=== PATIENT | male | born 1940 | race Caucasian/White ===

== ENCOUNTER 2016-11-15 12:03 | Inpatient (IN) | payer OTHER ==
[~2016-11-15] VITALS: Ht 175.3 cm; Wt 115.1 kg
[~2016-11-15 12:03] MED LIST: KEFLEX500 MG PO; LEVOTHYROXINE75 MCG PO; LOVASTATIN20 MG PO
[2016-11-15 12:47] LABS: BASOPHIL COUNT 0.1 K/uL (0-0.1); EOSINOPHIL (%) 2.7 % (0-5); EOSINOPHIL COUNT 0.2 K/uL (0-0.3); HEMATOCRIT 34.7 % (38.0-50.0); IMMATURE GRANULOCYTE (%) 0.3 % (0.0-0.7); INSTRUMENT ABS NEUTROPHIL CT 4.3 K/uL; LYMPHOCYTE COUNT 1.4 K/uL (1.0-2.8); MCH 34.3 PG (29.0-34.0); MCV 95.3 FL (86-99); MEAN PLAT.VOLUME 10.5 uM^3 (9.0-12.4); MONOCYTE (%) 15.4 % (3-12); MONOCYTE COUNT 1.1 K/uL (0-0.8); NEUTROPHIL (%) 61.5 % (45-76); NEUTROPHIL COUNT 4.3 K/uL (1.8-6.4); PLATELET COUNT 121 K/uL (156-360); RBC DIS.WIDTH-CV 15.8 % (11.8-14.6); RBC DIS.WIDTH-SD 55.5 % (39-53); RED BLOOD COUNT 3.64 M/uL (4.00-5.50); WHITE BLOOD COUNT 7.1 K/uL (4.1-10.2)
[2016-11-15 13:11] LABS: CHLORIDE 108 mEq/L (99-109); POTASSIUM 3.4 mEq/L (3.7-5.4); SODIUM 135 mEq/L (136-147)
[2016-11-15 13:13] LABS: GLUCOSE 122 mg/dL (70-99)
[2016-11-15 13:14] LABS: ANION GAP 9 MEQ/L (2-14)
[2016-11-15 13:17] LABS: GFR ESTIMATE (CALCULATED) > 59 mL/min/
[2016-11-15 13:18] LABS: UREA NITROGEN (BUN) 17 mg/dL (9-23)
[2016-11-15] MEDS ORDERED: SPIRONOLACTONE50 MG PO (14:42)
[2016-11-15] MEDS ORDERED: LASIX20 MG PO (14:43)
[2016-11-15] MEDS ORDERED: PANTOPRAZOLE SO40 MG PO (14:44)
[2016-11-15] MEDS ORDERED: PROAIR HFA8.5 GM IH (14:44)
[2016-11-15 15:08] LABS: ADD MIUA? YES; BILIRUBIN NEGATIVE; BLOOD LARGE; COLOR YELLOW ((YELLOW)); GLUCOSE (STRIP) NEGATIVE; KETONES NEGATIVE; LEUKOCYTES NEGATIVE; NITRITE NEGATIVE; PROTEIN (STRIP) NEGATIVE; SPECIFIC GRAVITY 1.012 (1.000-1.030); UROBILINOGEN 0.2 MG/DL (0.2-1.0)
[2016-11-15 15:44] LABS: TROP-I INTERPRETATION NEGATIVE; TROPONIN-I 0.01 ng/mL (0.0-0.30)
[2016-11-15 15:46] LABS: BACTERIA 1+ /HPF; EPITHELIAL CELLS NONE SEEN /HPF; MUCUS NONE SEEN /LPF; WHITE BLOOD CELLS 0-5 /HPF (0-5)
[2016-11-15 21:21] LABS: TROP-I INTERPRETATION NEGATIVE; TROPONIN-I 0.01 ng/mL (0.0-0.30)
[2016-11-15 22:58] VITALS: BP 118/63
[2016-11-16 06:16] LABS: ANION GAP 5 MEQ/L (2-14); CHLORIDE 106 MEQ/L (99-109); GFR ESTIMATE (CALCULATED) 53 mL/min/; GLUCOSE 152 mg/dL (70-99); POTASSIUM 3.9 MEQ/L (3.7-5.4); SAMPLE HEMOLYSIS CHECK 0; SAMPLE ICTERIC CHECK 0; SAMPLE LIPEMIA CHECK 0; SODIUM 130 MEQ/L (136-147); UREA NITROGEN (BUN) 21 mg/dL (9-23)
[2016-11-16 06:18] LABS: TROP-I INTERPRETATION NEGATIVE; TROPONIN-I 0.01 ng/mL (0.0-0.30)
[2016-11-16 07:09] VITALS: BP 127/75
[2016-11-16 10:06] LABS: ALKALINE PHOSPHATASE 94 IU/L (3-129); DIRECT BILIRUBIN 0.7 mg/dL (0.0-0.3); TOTAL BILIRUBIN 2.4 MG/DL (0.0-1.0)
[2016-11-16 10:45] LABS: D-DIMER ELISA > 4.00 mg/L FEU (< 0.57)
[2016-11-16 23:58] VITALS: BP 115/65
[2016-11-17 07:07] VITALS: BP 102/57
[2016-11-17 08:00] LABS: EOSINOPHIL (%) 0 % (0-5); HEMATOCRIT 29.7 % (38.0-50.0); IMMATURE GRANULOCYTE (%) 2.2 % (0.0-0.7); IMMATURE GRANULOCYTE COUNT 0.4 K/uL; INSTRUMENT ABS NEUTROPHIL CT 16.7 K/uL; LYMPHOCYTE COUNT 0.8 K/uL (1.0-2.8); MCH 34.7 PG (29.0-34.0); MCHC 36.4 G/DL (30.0-36.0); MCV 95.5 FL (86-99); MEAN PLAT.VOLUME 11.9 uM^3 (9.0-12.4); MONOCYTE (%) 4.6 % (3-12); MONOCYTE COUNT 0.9 K/uL (0-0.8); NEUTROPHIL (%) 88.7 % (45-76); NEUTROPHIL COUNT 16.7 K/uL (1.8-6.4); NRBC (%) 0.1 /100 WBC (0-0); PLATELET COUNT 114 K/uL (156-360); RED BLOOD COUNT 3.11 M/uL (4.00-5.50)
[2016-11-17 08:15] LABS: WHITE BLOOD COUNT 18.8 K/uL (4.1-10.2)
[2016-11-17 09:06] LABS: ALKALINE PHOSPHATASE 86 IU/L (3-129); ANION GAP 9 MEQ/L (2-14); CHLORIDE 105 MEQ/L (99-109); GFR ESTIMATE (CALCULATED) 49 mL/min/; GLUCOSE 142 mg/dL (70-99); POTASSIUM 4.2 MEQ/L (3.7-5.4); SAMPLE HEMOLYSIS CHECK 0; SAMPLE ICTERIC CHECK 0; SAMPLE LIPEMIA CHECK 0; SODIUM 133 MEQ/L (136-147); UREA NITROGEN (BUN) 24 mg/dL (9-23)
[2016-11-17 15:40] VITALS: BP 101/58
[2016-11-17 23:21] VITALS: BP 104/55
[2016-11-18 06:20] LABS: EOSINOPHIL (%) 0 % (0-5); HEMATOCRIT 28.6 % (38.0-50.0); IMMATURE GRANULOCYTE (%) 1.5 % (0.0-0.7); IMMATURE GRANULOCYTE COUNT 0.2 K/uL; INSTRUMENT ABS NEUTROPHIL CT 12.5 K/uL; LYMPHOCYTE COUNT 1.6 K/uL (1.0-2.8); MCH 35.1 PG (29.0-34.0); MCHC 36.4 G/DL (30.0-36.0); MCV 96.6 FL (86-99); MEAN PLAT.VOLUME 10.9 uM^3 (9.0-12.4); MONOCYTE (%) 9.5 % (3-12); MONOCYTE COUNT 1.5 K/uL (0-0.8); NEUTROPHIL (%) 78.8 % (45-76); NEUTROPHIL COUNT 12.5 K/uL (1.8-6.4); NRBC (%) 0.1 /100 WBC (0-0); PLATELET COUNT 90 K/uL (156-360); RBC DIS.WIDTH-CV 16.1 % (11.8-14.6); RBC DIS.WIDTH-SD 56.4 % (39-53); RED BLOOD COUNT 2.96 M/uL (4.00-5.50); WHITE BLOOD COUNT 15.8 K/uL (4.1-10.2)
[2016-11-18 07:15] LABS: ALKALINE PHOSPHATASE 82 IU/L (3-129); ANION GAP 6 MEQ/L (2-14); CHLORIDE 102 MEQ/L (99-109); GFR ESTIMATE (CALCULATED) 57 mL/min/; GLUCOSE 112 mg/dL (70-99); POTASSIUM 4.1 MEQ/L (3.7-5.4); SAMPLE HEMOLYSIS CHECK 0; SAMPLE ICTERIC CHECK 0; SAMPLE LIPEMIA CHECK 0; SODIUM 129 MEQ/L (136-147); TOTAL BILIRUBIN 2.2 MG/DL (0.0-1.0); UREA NITROGEN (BUN) 27 mg/dL (9-23)
[2016-11-18 07:50] VITALS: BP 114/55
[2016-11-18 15:30] VITALS: BP 118/57
[2016-11-18 19:40] VITALS: BP 117/64
[2016-11-18 23:05] VITALS: BP 108/61
[2016-11-19 07:08] LABS: EOSINOPHIL (%) 0.3 % (0-5); HEMATOCRIT 28.6 % (38.0-50.0); IMMATURE GRANULOCYTE (%) 2.4 % (0.0-0.7); IMMATURE GRANULOCYTE COUNT 0.3 K/uL; INSTRUMENT ABS NEUTROPHIL CT 7.9 K/uL; LYMPHOCYTE COUNT 1.9 K/uL (1.0-2.8); MCH 34.6 PG (29.0-34.0); MCHC 35.7 G/DL (30.0-36.0); MCV 96.9 FL (86-99); MEAN PLAT.VOLUME 11.2 uM^3 (9.0-12.4); MONOCYTE (%) 11.9 % (3-12); MONOCYTE COUNT 1.4 K/uL (0-0.8); NEUTROPHIL (%) 68.6 % (45-76); NEUTROPHIL COUNT 7.9 K/uL (1.8-6.4); NRBC (%) 0.2 /100 WBC (0-0); PLATELET COUNT 93 K/uL (156-360); RBC DIS.WIDTH-CV 16.2 % (11.8-14.6); RED BLOOD COUNT 2.95 M/uL (4.00-5.50); WHITE BLOOD COUNT 11.6 K/uL (4.1-10.2)
[2016-11-19 07:23] VITALS: BP 140/70
[2016-11-19 07:32] LABS: GFR ESTIMATE (CALCULATED) > 59 mL/min/; GLUCOSE 91 mg/dL (70-99); UREA NITROGEN (BUN) 27 mg/dL (9-23)
[2016-11-19 07:33] LABS: ALKALINE PHOSPHATASE 91 IU/L (3-129); ANION GAP 5 MEQ/L (2-14); CHLORIDE 108 MEQ/L (99-109); POTASSIUM 3.9 MEQ/L (3.7-5.4); SAMPLE HEMOLYSIS CHECK 0; SAMPLE ICTERIC CHECK 0; SAMPLE LIPEMIA CHECK 0; SODIUM 135 MEQ/L (136-147); TOTAL BILIRUBIN 2.3 MG/DL (0.0-1.0); URIC ACID 4.5 mg/dL (3.1-9.2)
[2016-11-19 15:16] VITALS: BP 139/71
[2016-11-19 23:19] VITALS: BP 109/58
[2016-11-20 07:19] LABS: EOSINOPHIL (%) 1.6 % (0-5); EOSINOPHIL COUNT 0.1 K/uL (0-0.3); HEMATOCRIT 28.4 % (38.0-50.0); IMMATURE GRANULOCYTE (%) 1.9 % (0.0-0.7); IMMATURE GRANULOCYTE COUNT 0.2 K/uL; INSTRUMENT ABS NEUTROPHIL CT 5.5 K/uL; LYMPHOCYTE COUNT 1.5 K/uL (1.0-2.8); MCH 35.4 PG (29.0-34.0); MCHC 36.3 G/DL (30.0-36.0); MCV 97.6 FL (86-99); MEAN PLAT.VOLUME 11.3 uM^3 (9.0-12.4); MONOCYTE (%) 12.1 % (3-12); NEUTROPHIL (%) 66.1 % (45-76); NEUTROPHIL COUNT 5.5 K/uL (1.8-6.4); NRBC (%) 0.2 /100 WBC (0-0); PLATELET COUNT 86 K/uL (156-360); RBC DIS.WIDTH-CV 16.8 % (11.8-14.6); RBC DIS.WIDTH-SD 58.2 % (39-53); RED BLOOD COUNT 2.91 M/uL (4.00-5.50); WHITE BLOOD COUNT 8.3 K/uL (4.1-10.2)
[2016-11-20 07:42] LABS: ANION GAP 2 MEQ/L (2-14); CHLORIDE 112 MEQ/L (99-109); GFR ESTIMATE (CALCULATED) 57 mL/min/; GLUCOSE 86 mg/dL (70-99); POTASSIUM 3.6 MEQ/L (3.7-5.4); SAMPLE HEMOLYSIS CHECK 0; SAMPLE ICTERIC CHECK 0; SAMPLE LIPEMIA CHECK 0; SODIUM 137 MEQ/L (136-147); UREA NITROGEN (BUN) 27 mg/dL (9-23)
[2016-11-20 08:02] VITALS: BP 123/65
[2016-11-20] MEDS ORDERED: PREDNISONE10 MG PO (11:16)
== END 2016-11-20 14:10 | disposition home health service (06) | DRG 189 ==
LOC: EME 12:03 → EDOF 14:21 → 5EAST 14:21
PROVIDERS: Emergency Medicine; Hospitalist; Internal Medicine; Internal Medicine Nephrology
PROC: 5A09357 Assistance with Respiratory Ventilation, Less than 24 Consecutive Hours, Continuous Positive Airway Pressure (ICD-10-PCS; principal; 2016-11-15)
DX: J96.21 Acute and chronic respiratory failure with hypoxia (principal); J84.10 Pulmonary fibrosis, unspecified; N17.9 Acute kidney failure, unspecified; I27.2 Other secondary pulmonary hypertension; E87.6 Hypokalemia; E87.1 Hypo-osmolality and hyponatremia; E78.5 Hyperlipidemia, unspecified; Z87.891 Personal history of nicotine dependence; Z99.81 Dependence on supplemental oxygen; D69.6 Thrombocytopenia, unspecified; K74.60 Unspecified cirrhosis of liver; K76.6 Portal hypertension; E88.09 Other disorders of plasma-protein metabolism, not elsewhere classified; E03.9 Hypothyroidism, unspecified; G47.33 Obstructive sleep apnea (adult) (pediatric); I11.0 Hypertensive heart disease with heart failure; I50.9 Heart failure, unspecified
CPT/HCPCS: 70450; 71010; 71250; 76705; 76770; 78582; 80048; 80053; 80069; 80076; 81003; 83935; 84100; 84300; 84443; 84484; 84550; 85025; 85379; 87070; 87205; 93005; 94640; 94640 76; 94760; 94799; 97530 GO; 99202; 99281; 99285; A9540; A9567; G8987 GO CI; G8988 GO CH; J0696; J1650; J2930; J7030; J7050; J7512; P9047

== ENCOUNTER 2017-02-05 11:26 | Inpatient (IN) | payer OTHER ==
[~2017-02-05] VITALS: Ht 185.4 cm; Wt 124.8 kg
[~2017-02-05 11:26] MED LIST changes: +LASIX40 MG PO; -LOVASTATIN20 MG PO; +LOVASTATIN40 MG PO; +OMEPRAZOLE20 MG PO; +PREDNISONE10 MG PO; +PROAIR HFA8.5 GM IH; +SPIRONOLACTONE50 MG PO
[2017-02-05 14:41] LABS: EOSINOPHIL (%) 0.1 % (0-5); HEMATOCRIT 32.1 % (38.0-50.0); IMMATURE GRANULOCYTE (%) 0.9 % (0.0-0.7); IMMATURE GRANULOCYTE COUNT 0.2 K/uL; INSTRUMENT ABS NEUTROPHIL CT 15.9 K/uL; LYMPHOCYTE COUNT 0.8 K/uL (1.0-2.8); MCH 34.2 PG (29.0-34.0); MCHC 35.8 G/DL (30.0-36.0); MEAN PLAT.VOLUME 11.1 uM^3 (9.0-12.4); MONOCYTE COUNT 1.3 K/uL (0-0.8); NEUTROPHIL (%) 87.3 % (45-76); NEUTROPHIL COUNT 15.9 K/uL (1.8-6.4); NRBC (%) 0.1 /100 WBC (0-0); PLATELET COUNT 119 K/uL (156-360); RBC DIS.WIDTH-CV 15.5 % (11.8-14.6); RBC DIS.WIDTH-SD 53.3 % (39-53); RED BLOOD COUNT 3.36 M/uL (4.00-5.50); WHITE BLOOD COUNT 18.2 K/uL (4.1-10.2)
[2017-02-05 14:42] LABS: MCV 95.5 FL (86-99)
[2017-02-05 14:58] LABS: CHLORIDE 102 mEq/L (99-109); POTASSIUM 4.7 mEq/L (3.7-5.4); SODIUM 131 mEq/L (136-147)
[2017-02-05 15:00] LABS: GLUCOSE 60 mg/dL (70-99)
[2017-02-05 15:01] LABS: ANION GAP 14 MEQ/L (2-14)
[2017-02-05 15:02] LABS: TOTAL BILIRUBIN 2.9 mg/dL (0.0-1.0)
[2017-02-05 15:04] LABS: ALKALINE PHOSPHATASE 76 IU/L (3-129); GFR ESTIMATE (CALCULATED) 25 mL/min/
[2017-02-05 15:05] LABS: UREA NITROGEN (BUN) 36 mg/dL (9-23)
[2017-02-05 15:20] LABS: TROP-I INTERPRETATION NEGATIVE; TROPONIN-I 0.02 ng/mL (0.0-0.30)
[2017-02-05 17:27] LABS: ADD MIUA? YES; BILIRUBIN SMALL; BLOOD SMALL; COLOR AMBER ((YELLOW)); GLUCOSE (STRIP) NEGATIVE; KETONES NEGATIVE; LEUKOCYTES NEGATIVE; NITRITE NEGATIVE; PROTEIN (STRIP) 30; SPECIFIC GRAVITY 1.024 (1.000-1.030); UROBILINOGEN 0.2 MG/DL (0.2-1.0)
[2017-02-05 17:37] LABS: BACTERIA NONE SEEN /HPF; CALCIUM OXALATE CRYSTALS 2+ /HPF; EPITHELIAL CELLS RARE /HPF; HYALINE CASTS 30-40 /LPF; MUCUS TRACE /LPF; UCUL ADDED? YES
[2017-02-05] MEDS ORDERED: LEVOTHYROXINE100 MCG PO (18:46)
[2017-02-05] MEDS ORDERED: SPIRONOLACTONE25 MG PO (18:47)
[2017-02-05] MEDS ORDERED: POTASSIUM CHLO10 ME4 PO (18:48)
[2017-02-05 20:00] VITALS: BP 105/73
[2017-02-05 20:19] VITALS: BP 102/60
[2017-02-05 21:00] VITALS: BP 114/63
[2017-02-05 21:30] LABS: METH RESISTANT S AUREUS PCR NEGATIVE (NEGATIVE)
[2017-02-05 21:40] LABS: PROBE CHECK PASS; SPECIMEN PROCESSING CONTROL PASS
[2017-02-05 22:00] VITALS: BP 87/59
[2017-02-05 23:00] VITALS: BP 111/60
[2017-02-06] VITALS (17 sets, daily range): BP systolic 89–128; BP diastolic 44–68
[2017-02-06 08:33] LABS: EOSINOPHIL (%) 0.2 % (0-5); HEMATOCRIT 31.2 % (38.0-50.0); IMMATURE GRANULOCYTE (%) 1.2 % (0.0-0.7); IMMATURE GRANULOCYTE COUNT 0.3 K/uL; LYMPHOCYTE COUNT 1.3 K/uL (1.0-2.8); MCH 35.4 PG (29.0-34.0); MCHC 36.5 G/DL (30.0-36.0); MCV 96.9 FL (86-99); MEAN PLAT.VOLUME 11.1 uM^3 (9.0-12.4); MONOCYTE (%) 10.3 % (3-12); MONOCYTE COUNT 2.4 K/uL (0-0.8); NEUTROPHIL (%) 82.4 % (45-76); PLATELET COUNT 135 K/uL (156-360); RBC DIS.WIDTH-CV 15.7 % (11.8-14.6); RBC DIS.WIDTH-SD 54.5 % (39-53); RED BLOOD COUNT 3.22 M/uL (4.00-5.50)
[2017-02-06 08:44] LABS: ANION GAP 11 MEQ/L (2-14); CHLORIDE 101 MEQ/L (99-109); GFR ESTIMATE (CALCULATED) 23 mL/min/; GLUCOSE 60 mg/dL (70-99); POTASSIUM 4.9 MEQ/L (3.7-5.4); SAMPLE HEMOLYSIS CHECK 0; SAMPLE ICTERIC CHECK 1; SAMPLE LIPEMIA CHECK 0; SODIUM 129 MEQ/L (136-147); UREA NITROGEN (BUN) 41 mg/dL (9-23)
[2017-02-06 10:29] LABS: POINT-OF-CARE METER ID UU13113748
[2017-02-06 11:54] LABS: POINT-OF-CARE METER ID UU13113731
[2017-02-06 14:16] LABS: PROTHROMBIN TIME 22.6 SEC (10.2-12.9)
[2017-02-06 14:19] LABS: PTT 50.5 SEC (25-37)
[2017-02-06 16:58] LABS: TYPE OF FLUID PARACENTESIS
[2017-02-06 17:55] LABS: BODY FLUID EOSINOPHILS 0 % (0-25); BODY FLUID RBC'S 2000 /MM^3 (0-100); BODY FLUID WBC'S 6889 /MM^3 (0-500); MONONUCLEAR WBC'S 9 %; POLYNUCLEAR WBC'S 91 % (0-25)
[2017-02-07] VITALS (18 sets, daily range): BP systolic 66–119; BP diastolic 40–60
[2017-02-07 11:21] LABS: HEMATOCRIT 32.6 % (38.0-50.0); MCH 35.5 PG (29.0-34.0); MCHC 36.8 G/DL (30.0-36.0); MCV 96.4 FL (86-99); MEAN PLAT.VOLUME 11.2 uM^3 (9.0-12.4); PLATELET COUNT 150 K/uL (156-360); RBC DIS.WIDTH-CV 15.3 % (11.8-14.6); RBC DIS.WIDTH-SD 52.5 % (39-53); RED BLOOD COUNT 3.38 M/uL (4.00-5.50); WHITE BLOOD COUNT 26.7 K/uL (4.1-10.2)
[2017-02-07 11:40] LABS: ANION GAP 11 MEQ/L (2-14); CHLORIDE 99 MEQ/L (99-109); POTASSIUM 4.4 MEQ/L (3.7-5.4); SAMPLE HEMOLYSIS CHECK 0; SAMPLE ICTERIC CHECK 1; SAMPLE LIPEMIA CHECK 0; SODIUM 128 MEQ/L (136-147); TOTAL BILIRUBIN 3.5 MG/DL (0.0-1.0)
[2017-02-07 11:47] LABS: ALKALINE PHOSPHATASE 48 IU/L (3-129); GFR ESTIMATE (CALCULATED) 20 mL/min/; UREA NITROGEN (BUN) 55 mg/dL (9-23)
[2017-02-07 11:48] LABS: GLUCOSE 94 mg/dL (70-99)
[2017-02-07 14:43] LABS: HBSG INDEX 0.25; HPCA INDEX 0.21
[2017-02-07 14:44] LABS: ANTI-HEPATITIS A VIRUS (IGM) Nonreactive; HAV INDEX 0.22
[2017-02-07 14:45] LABS: ANTI-HEPATITIS B CORE (IGM) Nonreactive; HBC IgM INDEX 0.12
[2017-02-07 16:33] LABS: POINT-OF-CARE METER ID UU14162636
[2017-02-07 19:39] LABS: GLOBULINS 2.7 G/DL (2.3-3.5)
[2017-02-08] VITALS (24 sets, daily range): BP systolic 80–107; BP diastolic 42–55
[2017-02-08 01:36] LABS: POINT-OF-CARE METER ID UU13113748
[2017-02-08 05:27] LABS: POINT-OF-CARE METER ID UU13113748
[2017-02-08 05:58] LABS: EOSINOPHIL (%) 0 % (0-5); HEMATOCRIT 26.5 % (38.0-50.0); IMMATURE GRANULOCYTE COUNT 0.9 K/uL; INSTRUMENT ABS NEUTROPHIL CT 18.9 K/uL; LYMPHOCYTE COUNT 0.9 K/uL (1.0-2.8); MCH 34.2 PG (29.0-34.0); MCHC 36.2 G/DL (30.0-36.0); MCV 94.3 FL (86-99); MONOCYTE (%) 6.5 % (3-12); MONOCYTE COUNT 1.5 K/uL (0-0.8); NEUTROPHIL (%) 85.4 % (45-76); NEUTROPHIL COUNT 18.9 K/uL (1.8-6.4); RBC DIS.WIDTH-CV 14.6 % (11.8-14.6); RBC DIS.WIDTH-SD 48.7 % (39-53); RED BLOOD COUNT 2.81 M/uL (4.00-5.50); WHITE BLOOD COUNT 22.2 K/uL (4.1-10.2)
[2017-02-08 06:01] LABS: INTER. NORMALIZED RATIO 2.4; PROTHROMBIN TIME 27.1 SEC (10.2-12.9)
[2017-02-08 06:15] LABS: ANION GAP 13 MEQ/L (2-14)
[2017-02-08 07:18] LABS: MEAN PLAT.VOLUME 10.7 uM^3 (9.0-12.4); PLAT.SUFFICIENCY DECREASED
[2017-02-08 07:31] LABS: PLATELET COUNT 92 K/uL (156-360)
[2017-02-08 07:53] LABS: FERRITIN 1105 NG/ML (22-322)
[2017-02-08 11:39] LABS: HEMATOCRIT 26.4 % (38.0-50.0); MCHC 37.1 G/DL (30.0-36.0); MCV 97.1 FL (86-99); MEAN PLAT.VOLUME 10.8 uM^3 (9.0-12.4); NRBC (%) 0.1 /100 WBC (0-0); PLATELET COUNT 83 K/uL (156-360); RBC DIS.WIDTH-CV 15.3 % (11.8-14.6); RBC DIS.WIDTH-SD 52.5 % (39-53); RED BLOOD COUNT 2.72 M/uL (4.00-5.50); WHITE BLOOD COUNT 23.7 K/uL (4.1-10.2)
[2017-02-08 11:52] LABS: POINT-OF-CARE METER ID UU13113748
[2017-02-08 11:53] LABS: ALBUMIN 2.78 G/DL (3.6-4.9); ALBUMIN PERCENT 56.7 % (49.3-67.1); ALPHA-1 GLOBULIN 0.11 G/DL (0.15-0.40); ALPHA-1 PERCENT 2.3 % (2.1-5.5); ALPHA-2 GLOBULIN 0.37 G/DL (0.45-0.85); ALPHA-2 PERCENT 7.6 % (6.2-11.6); BETA PERCENT 6.2 % (8.9-15.8); GAMMA PERCENT 27.2 % (8.6-18.6); SERUM GEL NO. 95-4
[2017-02-08 12:00] LABS: ANION GAP 10 MEQ/L (2-14); CHLORIDE 102 MEQ/L (99-109); SAMPLE HEMOLYSIS CHECK 0; SAMPLE ICTERIC CHECK 1; SAMPLE LIPEMIA CHECK 0
[2017-02-08 12:06] LABS: GLUCOSE 97 mg/dL (70-99)
[2017-02-08 12:12] LABS: GFR ESTIMATE (CALCULATED) 20 mL/min/; POTASSIUM 4.8 MEQ/L (3.7-5.4); SODIUM 129 MEQ/L (136-147); UREA NITROGEN (BUN) 64 mg/dL (9-23)
[2017-02-08 14:24] LABS: GLUCOSE 105 mg/dL (70-99); UREA NITROGEN (BUN) 62 mg/dL (9-23)
[2017-02-08 14:25] LABS: GFR ESTIMATE (CALCULATED) 18 mL/min/; SODIUM 129 mEq/L (136-147)
[2017-02-08 14:26] LABS: POTASSIUM 4.8 mEq/L (3.7-5.4)
[2017-02-08 14:27] LABS: CHLORIDE 102 mEq/L (99-109)
[2017-02-08 14:29] LABS: URIC ACID 7.4 mg/dL (3.1-9.2)
[2017-02-08 18:29] LABS: POINT-OF-CARE METER ID UU13113748
[2017-02-08 23:44] LABS: BASE EXCESS -4.8 mEq/L (-3 to +3); CARBOXY HGB 2.1 % (0-5); METHEMOGLOBIN 1.8 % (0-1.5); PCO2 30 mm Hg (35-45); PO2 65 mm Hg (80-100); pH 7.41 (7.35-7.45)
[2017-02-08 23:45] LABS: POINT-OF-CARE METER ID UU14174217
[2017-02-08 23:45] LABS: COMMENTS - BLOOD GASES C+A+; DEVICE NC; O2 FLOW 3 L/MIN; SITE RR; TOTAL RESP RATE 24 resp/min
[2017-02-09] VITALS (18 sets, daily range): BP systolic 90–129; BP diastolic 49–64
[2017-02-09 00:41] LABS: HEMATOCRIT 25.4 % (38.0-50.0); MCH 34.7 PG (29.0-34.0); MCHC 36.6 G/DL (30.0-36.0); MCV 94.8 FL (86-99); MEAN PLAT.VOLUME 11.4 uM^3 (9.0-12.4); PLATELET COUNT 96 K/uL (156-360); RBC DIS.WIDTH-CV 14.9 % (11.8-14.6); RED BLOOD COUNT 2.68 M/uL (4.00-5.50); WHITE BLOOD COUNT 23.9 K/uL (4.1-10.2)
[2017-02-09 00:45] LABS: INTER. NORMALIZED RATIO 2.3; PROTHROMBIN TIME 26.6 SEC (10.2-12.9)
[2017-02-09 00:55] LABS: CHLORIDE 102 mEq/L (99-109); POTASSIUM 4.6 mEq/L (3.7-5.4); SODIUM 130 mEq/L (136-147)
[2017-02-09 00:56] LABS: PTT 74.4 SEC (25-37)
[2017-02-09 00:57] LABS: GLUCOSE 99 mg/dL (70-99)
[2017-02-09 00:59] LABS: ANION GAP 12 MEQ/L (2-14); TOTAL BILIRUBIN 2.8 mg/dL (0.0-1.0)
[2017-02-09 01:01] LABS: GFR ESTIMATE (CALCULATED) 20 mL/min/
[2017-02-09 01:02] LABS: UREA NITROGEN (BUN) 63 mg/dL (9-23)
[2017-02-09 01:11] LABS: ALKALINE PHOSPHATASE 45 IU/L (3-129)
[2017-02-09 02:41] LABS: ABS NEUTROPHIL COUNT 22.1; ANISOCYTOSIS 1+; EOSINOPHIL ABS CT 0; INSTRUMENT ABS NEUTROPHIL CT 19.9 K/uL; LYMPHOCYTES 2.5 % (15.0-45.0); MACROCYTES 1+; OVALOCYTES 1+; PLAT.SUFFICIENCY DECREASED; SEG.NEUTROPHILS 92.5 % (46.0-76.0)
[2017-02-09 05:48] LABS: EOSINOPHIL (%) 0 % (0-5); HEMATOCRIT 24.9 % (38.0-50.0); IMMATURE GRANULOCYTE (%) 4.8 % (0.0-0.7); IMMATURE GRANULOCYTE COUNT 1.1 K/uL; INSTRUMENT ABS NEUTROPHIL CT 18.7 K/uL; LYMPHOCYTE COUNT 0.9 K/uL (1.0-2.8); MCHC 35.3 G/DL (30.0-36.0); MCV 96.1 FL (86-99); MEAN PLAT.VOLUME 10.8 uM^3 (9.0-12.4); MONOCYTE (%) 7.5 % (3-12); MONOCYTE COUNT 1.7 K/uL (0-0.8); NEUTROPHIL (%) 83.6 % (45-76); NEUTROPHIL COUNT 18.7 K/uL (1.8-6.4); PLATELET COUNT 87 K/uL (156-360); RBC DIS.WIDTH-CV 15.1 % (11.8-14.6); RBC DIS.WIDTH-SD 51.6 % (39-53); RED BLOOD COUNT 2.59 M/uL (4.00-5.50); WHITE BLOOD COUNT 22.4 K/uL (4.1-10.2)
[2017-02-09 06:01] LABS: POINT-OF-CARE METER ID UU14208751
[2017-02-09 06:04] LABS: INTER. NORMALIZED RATIO 2.5; PROTHROMBIN TIME 28.7 SEC (10.2-12.9)
[2017-02-09 11:32] LABS: POINT-OF-CARE METER ID UU14208751
[2017-02-09 18:19] LABS: POINT-OF-CARE METER ID UU13113731
[2017-02-10] VITALS (9 sets, daily range): BP systolic 93–131; BP diastolic 48–66
[2017-02-10 04:54] LABS: HEMATOCRIT 24.2 % (38.0-50.0); MCH 34.1 PG (29.0-34.0); MCHC 36.4 G/DL (30.0-36.0); MCV 93.8 FL (86-99); MEAN PLAT.VOLUME 11.5 uM^3 (9.0-12.4); PLATELET COUNT 90 K/uL (156-360); RBC DIS.WIDTH-CV 14.9 % (11.8-14.6); RED BLOOD COUNT 2.58 M/uL (4.00-5.50); WHITE BLOOD COUNT 19.7 K/uL (4.1-10.2)
[2017-02-10 04:56] LABS: CHLORIDE 103 mEq/L (99-109); POTASSIUM 4.2 mEq/L (3.7-5.4); SODIUM 132 mEq/L (136-147)
[2017-02-10 04:58] LABS: GLUCOSE 115 mg/dL (70-99)
[2017-02-10 05:00] LABS: ANION GAP 10 MEQ/L (2-14); TOTAL BILIRUBIN 2.8 mg/dL (0.0-1.0)
[2017-02-10 05:02] LABS: ALKALINE PHOSPHATASE 49 IU/L (3-129); GFR ESTIMATE (CALCULATED) 24 mL/min/
[2017-02-10 05:03] LABS: UREA NITROGEN (BUN) 66 mg/dL (9-23)
[2017-02-10 05:28] LABS: INTER. NORMALIZED RATIO 2.4; PROTHROMBIN TIME 27.9 SEC (10.2-12.9)
[2017-02-10 06:50] LABS: ABS NEUTROPHIL COUNT 17.5; ANISOCYTOSIS 1+; EOSINOPHIL ABS CT 0; INSTRUMENT ABS NEUTROPHIL CT 15.9 K/uL; MACROCYTES 1+; OVALOCYTES 1+; PLAT.SUFFICIENCY DECREASED; SPHEROCYTES 1+
[2017-02-10 11:54] LABS: POINT-OF-CARE METER ID UU14162636; POINT-OF-CARE USER ID 612031313
[2017-02-10 18:44] LABS: POINT-OF-CARE METER ID UU14174217; POINT-OF-CARE USER ID 612031313
[2017-02-11] VITALS (9 sets, daily range): BP systolic 91–138; BP diastolic 54–71
[2017-02-11 05:51] LABS: POINT-OF-CARE METER ID UU14208751
[2017-02-11 06:15] LABS: ALKALINE PHOSPHATASE 71 IU/L (3-129); ANION GAP 9 MEQ/L (2-14); CHLORIDE 105 MEQ/L (99-109); GFR ESTIMATE (CALCULATED) 26 mL/min/; GLUCOSE 131 mg/dL (70-99); POTASSIUM 3.9 MEQ/L (3.7-5.4); SAMPLE HEMOLYSIS CHECK 0; SAMPLE ICTERIC CHECK 1; SAMPLE LIPEMIA CHECK 0; SODIUM 135 MEQ/L (136-147); TOTAL BILIRUBIN 3.3 MG/DL (0.0-1.0); UREA NITROGEN (BUN) 67 mg/dL (9-23)
[2017-02-11 06:57] LABS: HEMATOCRIT 26.3 % (38.0-50.0); MCH 35.3 PG (29.0-34.0); MCHC 37.3 G/DL (30.0-36.0); MCV 94.6 FL (86-99); MEAN PLAT.VOLUME 11.1 uM^3 (9.0-12.4); NRBC (%) 0.1 /100 WBC (0-0); PLATELET COUNT 90 K/uL (156-360); RBC DIS.WIDTH-CV 15.2 % (11.8-14.6); RBC DIS.WIDTH-SD 48.6 % (39-53); RED BLOOD COUNT 2.78 M/uL (4.00-5.50); WHITE BLOOD COUNT 15.6 K/uL (4.1-10.2)
[2017-02-11 07:43] LABS: ABS NEUTROPHIL COUNT 13.8; ANISOCYTOSIS 2+; ATYPICAL LYMPHOCYTE 0.9 %; BURR CELLS 2+; EOSINOPHIL ABS CT 0; HEMATOLOGY COMMENT 1 SN; HYPOCHROMASIA 1+; LYMPHOCYTES 3.5 % (15.0-45.0); MACROCYTES 2+; METAMYELOCYTES 0.9 %; PLAT.SUFFICIENCY DECREASED; POIKILOCYTOSIS 1+; SEG.NEUTROPHILS 88.6 % (46.0-76.0); TARGET CELLS 1+
[2017-02-11 11:00] LABS: INTER. NORMALIZED RATIO 2.3; PROTHROMBIN TIME 26.1 SEC (10.2-12.9)
[2017-02-11 11:02] LABS: PTT 50.7 SEC (25-37)
[2017-02-12 04:21] VITALS: BP 133/70
[2017-02-12 06:44] LABS: INTER. NORMALIZED RATIO 2.5; PROTHROMBIN TIME 28.3 SEC (10.2-12.9)
[2017-02-12 07:06] LABS: ALKALINE PHOSPHATASE 57 IU/L (3-129); ANION GAP 9 MEQ/L (2-14); CHLORIDE 105 MEQ/L (99-109); GFR ESTIMATE (CALCULATED) 31 mL/min/; GLUCOSE 114 mg/dL (70-99); MAGNESIUM 2.2 mg/dl (1.3-2.7); POTASSIUM 3.8 MEQ/L (3.7-5.4); SAMPLE HEMOLYSIS CHECK 0; SAMPLE ICTERIC CHECK 1; SAMPLE LIPEMIA CHECK 0; SODIUM 135 MEQ/L (136-147); UREA NITROGEN (BUN) 60 mg/dL (9-23)
[2017-02-12 07:11] LABS: TOTAL BILIRUBIN 4.6 MG/DL (0.0-1.0)
[2017-02-12 07:12] LABS: HEMATOCRIT 27.3 % (38.0-50.0); MCH 34.6 PG (29.0-34.0); MCHC 36.6 G/DL (30.0-36.0); MCV 94.5 FL (86-99); MEAN PLAT.VOLUME 11.1 uM^3 (9.0-12.4); PLATELET COUNT 80 K/uL (156-360); RBC DIS.WIDTH-CV 15.9 % (11.8-14.6); RBC DIS.WIDTH-SD 49.3 % (39-53); RED BLOOD COUNT 2.89 M/uL (4.00-5.50); WHITE BLOOD COUNT 18.3 K/uL (4.1-10.2)
[2017-02-12 07:46] LABS: ANISOCYTOSIS 3+; ATYPICAL LYMPHOCYTE 0.9 %; BAND NEUTROPHILS 4.4 % (0-8.0); BURR CELLS 2+; EOSINOPHIL ABS CT 0.2; EOSINOPHILS 0.9 % (0-5.0); INSTRUMENT ABS NEUTROPHIL CT 13.7 K/uL; LYMPHOCYTES 2.6 % (15.0-45.0); MACROCYTES 2+; PLAT.SUFFICIENCY DECREASED; POIKILOCYTOSIS 3+; SEG.NEUTROPHILS 83.2 % (46.0-76.0); SPHEROCYTES 1+; TARGET CELLS 2+
[2017-02-12 07:52] VITALS: BP 132/67
[2017-02-12 12:08] VITALS: BP 116/60
[2017-02-12 15:36] VITALS: BP 125/71
[2017-02-12 20:00] VITALS: BP 124/59
[2017-02-12 22:18] LABS: ADD MIUA? YES; BILIRUBIN NEGATIVE; BLOOD LARGE; COLOR AMBER ((YELLOW)); GLUCOSE (STRIP) NEGATIVE; KETONES NEGATIVE; LEUKOCYTES NEGATIVE; NITRITE NEGATIVE; PROTEIN (STRIP) NEGATIVE; SPECIFIC GRAVITY 1.016 (1.000-1.030); UROBILINOGEN 0.2 MG/DL (0.2-1.0)
[2017-02-12 22:56] LABS: BACTERIA RARE /HPF; EPITHELIAL CELLS RARE /HPF; MUCUS TRACE /LPF; RED BLOOD CELLS 20-30 /HPF (0-5)
[2017-02-12 23:46] VITALS: BP 130/68
[2017-02-13 03:44] VITALS: BP 123/65
[2017-02-13 05:42] LABS: INTER. NORMALIZED RATIO 2.3; PROTHROMBIN TIME 26.6 SEC (10.2-12.9)
[2017-02-13 05:57] LABS: ANION GAP 10 MEQ/L (2-14); CHLORIDE 103 MEQ/L (99-109); GFR ESTIMATE (CALCULATED) 37 mL/min/; GLUCOSE 100 mg/dL (70-99); POTASSIUM 3.9 MEQ/L (3.7-5.4); SAMPLE HEMOLYSIS CHECK 0; SAMPLE ICTERIC CHECK 1; SAMPLE LIPEMIA CHECK 0; SODIUM 133 MEQ/L (136-147); UREA NITROGEN (BUN) 50 mg/dL (9-23)
[2017-02-13 06:13] LABS: ANISOCYTOSIS 3+; BURR CELLS 3+; MACROCYTES 3+; PLAT.SUFFICIENCY DECREASED; POIKILOCYTOSIS 2+; POLYCHROMASIA 1+; TARGET CELLS 3+
[2017-02-13 06:26] LABS: EOSINOPHIL ABS CT 0; HEMATOCRIT 26.5 % (38.0-50.0); INSTRUMENT ABS NEUTROPHIL CT 16.6 K/uL; LYMPHOCYTES 1.8 % (15.0-45.0); MCH 35.2 PG (29.0-34.0); MCHC 37.4 G/DL (30.0-36.0); MCV 94.3 FL (86-99); MEAN PLAT.VOLUME 10.6 uM^3 (9.0-12.4); PLATELET COUNT 92 K/uL (156-360); RBC DIS.WIDTH-CV 16.3 % (11.8-14.6); RBC DIS.WIDTH-SD 49.7 % (39-53); RED BLOOD COUNT 2.81 M/uL (4.00-5.50); SMUDGE CELLS 24.8; WHITE BLOOD COUNT 22.5 K/uL (4.1-10.2)
[2017-02-13 07:50] VITALS: BP 125/72
[2017-02-13 08:08] LABS: POINT-OF-CARE METER ID UU13113717
[2017-02-13 08:49] LABS: ADD MIUA? YES; BILIRUBIN NEGATIVE; BLOOD LARGE; GLUCOSE (STRIP) NEGATIVE; KETONES NEGATIVE; LEUKOCYTES NEGATIVE; NITRITE NEGATIVE; PROTEIN (STRIP) NEGATIVE; SPECIFIC GRAVITY 1.017 (1.000-1.030); UROBILINOGEN 0.2 MG/DL (0.2-1.0)
[2017-02-13 08:59] LABS: COLOR YELLOW ((YELLOW))
[2017-02-13 09:12] LABS: BACTERIA RARE /HPF; BUDDING YEAST 1+; CELLULAR CASTS 0-5 /LPF; EPITHELIAL CELLS RARE /HPF; HYALINE CASTS 20-30 /LPF; MUCUS TRACE /LPF; RED BLOOD CELLS 20-30 /HPF (0-5)
[2017-02-13 11:44] VITALS: BP 123/68
[2017-02-13 15:59] VITALS: BP 132/62
[2017-02-13 19:44] VITALS: BP 130/69
[2017-02-13 23:55] VITALS: BP 133/69
[2017-02-14 03:25] VITALS: BP 144/67
[2017-02-14 05:52] LABS: INTER. NORMALIZED RATIO 2.3; PROTHROMBIN TIME 25.9 SEC (10.2-12.9)
[2017-02-14 05:55] LABS: PTT 51.4 SEC (25-37)
[2017-02-14 06:30] LABS: ALKALINE PHOSPHATASE 61 IU/L (3-129); DIRECT BILIRUBIN 2.3 mg/dL (0.0-0.3)
[2017-02-14 06:33] LABS: TOTAL BILIRUBIN 6.1 MG/DL (0.0-1.0)
[2017-02-14 07:50] VITALS: BP 130/64
[2017-02-14 09:57] LABS: ANION GAP 9 MEQ/L (2-14); CHLORIDE 104 MEQ/L (99-109); GFR ESTIMATE (CALCULATED) 39 mL/min/; GLUCOSE 96 mg/dL (70-99); POTASSIUM 4.2 MEQ/L (3.7-5.4); SODIUM 133 MEQ/L (136-147); UREA NITROGEN (BUN) 49 mg/dL (9-23)
[2017-02-14 10:02] LABS: HEMATOCRIT 26.5 % (38.0-50.0); MCHC 36.2 G/DL (30.0-36.0); MCV 96.7 FL (86-99); MEAN PLAT.VOLUME 10.9 uM^3 (9.0-12.4); PLATELET COUNT 81 K/uL (156-360); RBC DIS.WIDTH-CV 17.3 % (11.8-14.6); RBC DIS.WIDTH-SD 53.4 % (39-53); RED BLOOD COUNT 2.74 M/uL (4.00-5.50); WHITE BLOOD COUNT 20.6 K/uL (4.1-10.2)
[2017-02-14 12:32] VITALS: BP 118/60
[2017-02-14] MEDS ORDERED: XIFAXAN550 MG PO (14:03)
[2017-02-14] MEDS ORDERED: BENTYL20 MG PO (14:03)
[2017-02-14] MEDS ORDERED: ENULOSE10 GM/15 M PO (14:30)
[2017-02-14] MEDS ORDERED: Chronulac,Cephulac,E PO (14:30)
== END 2017-02-14 15:36 | DRG 871 ==
LOC: EME 11:26 → EDOF 17:42 → 4WEST 17:42 → ENRESERV 17:46 → 4WEST 19:54 → EDOF 19:54 → 4WEST 02-06 16:28 → ENRESERV 02-09 16:32 → 5SOUTH 02-11 08:17 → ENPENDDIS 02-14 → 5SOUTH 02-14 15:36
PROVIDERS: Emergency Medicine; Internal Medicine; Internal Medicine Critical Care Medicine; Internal Medicine Nephrology; Obstetrics & Gynecology; Specialist; Student in an Organized Health Care Education/Training Program
PROC: 0W9G3ZZ Drainage of Peritoneal Cavity, Percutaneous Approach (ICD-10-PCS; principal; 2017-02-06)
DX: A41.9 Sepsis, unspecified organism (principal); J44.9 Chronic obstructive pulmonary disease, unspecified; J84.10 Pulmonary fibrosis, unspecified; N17.0 Acute kidney failure with tubular necrosis; E78.5 Hyperlipidemia, unspecified; K74.60 Unspecified cirrhosis of liver; N39.0 Urinary tract infection, site not specified; T50.2X5A Adverse effect of carbonic-anhydrase inhibitors, benzothiadiazides and other diuretics, initial encounter; J96.11 Chronic respiratory failure with hypoxia; E87.1 Hypo-osmolality and hyponatremia; D69.59 Other secondary thrombocytopenia; J96.21 Acute and chronic respiratory failure with hypoxia; E87.2 Acidosis; K65.2 Spontaneous bacterial peritonitis; N18.9 Chronic kidney disease, unspecified; I13.0 Hypertensive heart and chronic kidney disease with heart failure and stage 1 through stage 4 chronic kidney disease, or unspecified chronic kidney disease; D64.9 Anemia, unspecified; E87.0 Hyperosmolality and hypernatremia; K76.6 Portal hypertension; E03.9 Hypothyroidism, unspecified; R18.8 Other ascites; K72.90 Hepatic failure, unspecified without coma; A49.8 Other bacterial infections of unspecified site; D68.9 Coagulation defect, unspecified; I27.2 Other secondary pulmonary hypertension; I50.9 Heart failure, unspecified; K55.9 Vascular disorder of intestine, unspecified; I85.00 Esophageal varices without bleeding; N48.89 Other specified disorders of penis; R57.1 Hypovolemic shock; Z99.81 Dependence on supplemental oxygen; Z87.891 Personal history of nicotine dependence
CPT/HCPCS: 36600; 49083; 71010; 74176; 76770; 76857; 80048; 80048 91; 80053; 80074; 80076; 81003; 82040; 82140; 82150 91; 82390; 82436; 82533 91; 82607; 82728; 82746; 82803; 82948; 83605; 83735; 83935; 84100; 84133; 84165; 84300; 84466; 84484; 84550; 85025; 85025 91; 85027; 85610; 85730; 86038; 87040; 87070; 87075; 87077; 87086 GA; 87186; 87205; 87641; 89051; 93005; 93306; 94010; 94640; 94640 76; 94760; 94799; 97530 GO; 97530 GP; 99202; 99281; 99285; J0696; J1644; J2020; J2405; J2543; J2930; J3010; J3370; J3430; J7030; J7050; J7120; P9047; S0030

== ENCOUNTER 2017-02-20 10:21 | Inpatient (IN) | payer OTHER ==
[~2017-02-20] VITALS: Ht 185.4 cm; Wt 123.2 kg
[~2017-02-20 10:21] MED LIST changes: +BENTYL20 MG PO; +Chronulac,Cephulac,E PO; +ENULOSE10 GM/15 M PO; +LEVOTHYROXINE100 MCG PO; +POTASSIUM CHLO10 ME4 PO; +SPIRONOLACTONE25 MG PO; +XIFAXAN550 MG PO
[2017-02-20 12:05] LABS: BASOPHIL COUNT 0.1 K/uL (0-0.1); EOSINOPHIL COUNT 0.2 K/uL (0-0.3); HEMATOCRIT 22.8 % (38.0-50.0); IMMATURE GRANULOCYTE (%) 1.1 % (0.0-0.7); IMMATURE GRANULOCYTE COUNT 0.2 K/uL; INSTRUMENT ABS NEUTROPHIL CT 15.7 K/uL; MCH 35.2 PG (29.0-34.0); MCHC 36.4 G/DL (30.0-36.0); MCV 96.6 FL (86-99); MONOCYTE (%) 10.1 % (3-12); MONOCYTE COUNT 1.9 K/uL (0-0.8); NEUTROPHIL COUNT 15.7 K/uL (1.8-6.4); PLATELET COUNT 170 K/uL (156-360); RBC DIS.WIDTH-CV 21.2 % (11.8-14.6); RBC DIS.WIDTH-SD 71.7 % (39-53); RED BLOOD COUNT 2.36 M/uL (4.00-5.50); WHITE BLOOD COUNT 19.1 K/uL (4.1-10.2)
[2017-02-20 12:13] LABS: INTER. NORMALIZED RATIO 2.2; PROTHROMBIN TIME 25.4 SEC (10.2-12.9)
[2017-02-20 12:14] LABS: CHLORIDE 110 mEq/L (99-109); POTASSIUM 4.6 mEq/L (3.7-5.4); SODIUM 137 mEq/L (136-147)
[2017-02-20 12:17] LABS: GLUCOSE 97 mg/dL (70-99)
[2017-02-20 12:18] LABS: ANION GAP 7 MEQ/L (2-14)
[2017-02-20 12:19] LABS: TOTAL BILIRUBIN 6.1 mg/dL (0.0-1.0)
[2017-02-20 12:20] LABS: ALKALINE PHOSPHATASE 113 IU/L (3-129); GFR ESTIMATE (CALCULATED) 45 mL/min/
[2017-02-20 12:21] LABS: UREA NITROGEN (BUN) 49 mg/dL (9-23)
[2017-02-20 12:24] LABS: LIPASE 63 U/L (1.0-51.0)
[2017-02-20 12:59] LABS: ADD MIUA? YES; BILIRUBIN NEGATIVE; BLOOD LARGE; COLOR AMBER ((YELLOW)); GLUCOSE (STRIP) NEGATIVE; KETONES NEGATIVE; LEUKOCYTES LARGE; NITRITE NEGATIVE; PROTEIN (STRIP) 30; SPECIFIC GRAVITY 1.016 (1.000-1.030); UROBILINOGEN 0.2 MG/DL (0.2-1.0)
[2017-02-20 13:10] LABS: BACTERIA RARE /HPF; BUDDING YEAST 2+; EPITHELIAL CELLS RARE /HPF; HYALINE CASTS 15-20 /LPF; MUCUS TRACE /LPF; RED BLOOD CELLS TNTC /HPF (0-5); UCUL ADDED? YES; WHITE BLOOD CELLS TNTC /HPF (0-5)
[2017-02-20] MEDS ORDERED: LACTULOSE10 GM/151 PO (14:18)
[2017-02-20] MEDS ORDERED: ALBUTEROL2.5 MG/3 M IH (14:21)
[2017-02-20] MEDS ORDERED: DULCOLAX10 MG PR (14:22)
[2017-02-20] MEDS ORDERED: MILK OF MAGN PO (14:22)
[2017-02-20] MEDS ORDERED: MIRALAX17 GM PO (14:22)
[2017-02-20 16:21] LABS: TYPE OF FLUID PERITONEAL
[2017-02-20 16:54] VITALS: BP 110/66
[2017-02-20 16:57] LABS: BODY FLUID EOSINOPHILS 0 % (0-25); BODY FLUID RBC'S 4000 /MM^3 (0-100); BODY FLUID WBC'S 286 /MM^3 (0-500); MONONUCLEAR WBC'S 50 %; POLYNUCLEAR WBC'S 50 % (0-25)
[2017-02-20 18:18] LABS: POINT-OF-CARE METER ID UU13113717
[2017-02-20 20:07] VITALS: BP 127/58
[2017-02-20 23:25] VITALS: BP 123/65
[2017-02-21 01:37] LABS: POINT-OF-CARE METER ID UU14174225
[2017-02-21 03:40] VITALS: BP 109/59
[2017-02-21 06:16] LABS: HEMATOCRIT 23.1 % (38.0-50.0); MCH 35.2 PG (29.0-34.0); MCHC 35.5 G/DL (30.0-36.0); MCV 99.1 FL (86-99); MEAN PLAT.VOLUME 10.5 uM^3 (9.0-12.4); PLATELET COUNT 180 K/uL (156-360); RBC DIS.WIDTH-CV 21.4 % (11.8-14.6); RBC DIS.WIDTH-SD 72.4 % (39-53); RED BLOOD COUNT 2.33 M/uL (4.00-5.50); WHITE BLOOD COUNT 18.4 K/uL (4.1-10.2)
[2017-02-21 06:31] LABS: ALKALINE PHOSPHATASE 77 IU/L (3-129); ANION GAP 10 MEQ/L (2-14); CHLORIDE 115 MEQ/L (99-109); GFR ESTIMATE (CALCULATED) 42 mL/min/; GLUCOSE 97 mg/dL (70-99); POTASSIUM 4.6 MEQ/L (3.7-5.4); SAMPLE HEMOLYSIS CHECK 0; SAMPLE ICTERIC CHECK 2; SAMPLE LIPEMIA CHECK 0; SODIUM 143 MEQ/L (136-147); UREA NITROGEN (BUN) 49 mg/dL (9-23)
[2017-02-21 06:42] LABS: TOTAL BILIRUBIN 6.7 MG/DL (0.0-1.0)
[2017-02-21 07:38] VITALS: BP 117/59
[2017-02-21 11:06] LABS: INTER. NORMALIZED RATIO 2.5; PROTHROMBIN TIME 28.9 SEC (10.2-12.9)
[2017-02-21 11:26] VITALS: BP 101/52
[2017-02-21 15:51] VITALS: BP 118/49
[2017-02-21 19:57] VITALS: BP 104/53
[2017-02-21 23:54] VITALS: BP 102/54
[2017-02-22 03:47] VITALS: BP 105/60
[2017-02-22 07:14] LABS: HEMATOCRIT 22.3 % (38.0-50.0); MEAN PLAT.VOLUME 10.6 uM^3 (9.0-12.4); PLATELET COUNT 137 K/uL (156-360); RBC DIS.WIDTH-SD 75.3 % (39-53); RED BLOOD COUNT 2.23 M/uL (4.00-5.50); WHITE BLOOD COUNT 17.3 K/uL (4.1-10.2)
[2017-02-22 07:39] LABS: ALKALINE PHOSPHATASE 62 IU/L (3-129); ANION GAP 13 MEQ/L (2-14); CHLORIDE 112 MEQ/L (99-109); GFR ESTIMATE (CALCULATED) 35 mL/min/; GLUCOSE 99 mg/dL (70-99); POTASSIUM 3.9 MEQ/L (3.7-5.4); SAMPLE HEMOLYSIS CHECK 0; SAMPLE ICTERIC CHECK 2; SAMPLE LIPEMIA CHECK 0; SODIUM 142 MEQ/L (136-147); TOTAL BILIRUBIN 6.7 MG/DL (0.0-1.0); UREA NITROGEN (BUN) 50 mg/dL (9-23)
[2017-02-22 07:59] VITALS: BP 104/54
[2017-02-22] MEDS ORDERED: LASIX40 MG PO (12:29)
[2017-02-22] MEDS ORDERED: LACTULOSE10 GM/151 PO (12:29)
[2017-02-22] MEDS ORDERED: FLUCONAZOLE100 MG PO (12:29)
[2017-02-22] MEDS ORDERED: MORPHINE S10 MG/5 ML PO (12:34)
[2017-02-22] MEDS ORDERED: ATIVAN0.5 MG PO (12:34)
[2017-02-22] MEDS ORDERED: HYOSCYAMINE0.125 M1 SL (12:34)
== END 2017-02-22 16:36 | disposition hospice, home (50) | DRG 441 ==
LOC: EME → EDBD 10:21 → 5SOUTH 13:05 → EDOF 13:05 → ENRESERV 13:39 → EDOF 15:18 → ENRESERV 15:46 → 5SOUTH 16:36
PROVIDERS: Emergency Medicine; Internal Medicine; Internal Medicine Gastroenterology
PROC: 0W9G3ZX Drainage of Peritoneal Cavity, Percutaneous Approach, Diagnostic (ICD-10-PCS; principal; 2017-02-20)
DX: K72.00 Acute and subacute hepatic failure without coma (principal); J96.21 Acute and chronic respiratory failure with hypoxia; Z99.81 Dependence on supplemental oxygen; J44.9 Chronic obstructive pulmonary disease, unspecified; J84.10 Pulmonary fibrosis, unspecified; Z66 Do not resuscitate; I12.9 Hypertensive chronic kidney disease with stage 1 through stage 4 chronic kidney disease, or unspecified chronic kidney disease; N18.3 Chronic kidney disease, stage 3 (moderate); Z87.891 Personal history of nicotine dependence; N39.0 Urinary tract infection, site not specified; D68.9 Coagulation defect, unspecified; D63.8 Anemia in other chronic diseases classified elsewhere; E03.9 Hypothyroidism, unspecified; D69.6 Thrombocytopenia, unspecified; E78.5 Hyperlipidemia, unspecified; G47.30 Sleep apnea, unspecified; K75.4 Autoimmune hepatitis; K76.6 Portal hypertension; K74.60 Unspecified cirrhosis of liver; N17.0 Acute kidney failure with tubular necrosis; K21.9 Gastro-esophageal reflux disease without esophagitis; M19.90 Unspecified osteoarthritis, unspecified site; R18.8 Other ascites; E66.9 Obesity, unspecified; Z68.35 Body mass index [BMI] 35.0-35.9, adult
CPT/HCPCS: 49083; 70450; 71010; 80053; 81003; 82105 90; 82140; 82948; 83690; 85025 91; 85027; 85610; 87040; 87070; 87075; 87086; 87106; 87205; 89051; 93005; 94799; 99281; 99285; J0696; J1644; J1940; J7042; J7050; P9047; S0028